=== PATIENT | male | born 1975 | race Caucasian/White ===

== ENCOUNTER 2019-01-05 21:57 | Emergency (ER) | payer OTHER ==
[2019-01-05 22:28] VITALS: BP 123/81; PULSE 80; TEMP 97.8; BMI 29.2
--- NOTE | 2019-01-06 02:13 | PDOC ---
Attending Attestation - Resident Resident Name: Calvin Cabrera - ED Attending Attestation I have performed the following: I have examined & evaluated the patient, The case was reviewed & discussed with the resident, I agree w/resident's findings & plan - HPI HPI: 01/06/19 03:55 43-year-old male status post seizure striking his forehead on the wall. Here for evaluation from his custodial. - Physicial Exam PE: 01/06/19 03:56 agree with resident exam - Medical Decision Making 01/06/19 03:56 43 yo male s/o head strike and left eyebrow laceration sustained during seizure CT scan brain negative for acute traumatic injury d/c with pcp follow up
--- NOTE | 2019-01-06 02:38 | PDOC ---
History of Present Illness - General Chief Complaint: Seizure Stated Complaint: SEIZURE 30 MINUTES AGO Time Seen by Provider: 01/06/19 01:45 - History of Present Illness Initial Comments: 01/06/19 02:34 43m from [facility], h/o mild mental retardation, autism, schizophrenia and seizure disorder brought to the ED after seizing and hitting his face against a wall while falling. Numerous seizure over the months with frequent readjustment of medication ( 1750mg bid of valproate and 1g keppra daily) Seizure was tonic clonic, lasted 5min and patient was post ictal for 5min. No incontinence. Patient has small laceration over left eyebrow. Accompanied by facility raiser helper. Past History - Past Medical History Allergies/Adverse Reactions: Allergies Allergy/AdvReac Type Severity Reaction Status Date / Time No Known Allergies Allergy Verified 01/05/19 22:23 Cancer: No Cardiac Disorders: No CVA: No COPD: No Seizures: Yes - Surgical History GI Surgery: Yes (colostomy) - Suicide/Smoking/Psychosocial Hx Smoking History: Never smoked Review of Systems - Review of Systems Able to Perform ROS?: No (MR) *Physical Exam - Vital Signs Last Vital Signs Temp Pulse Resp BP Pulse Ox 97.8 F 80 20 123/81 98 01/05/19 22:23 01/05/19 22:23 01/05/19 22:23 01/05/19 22:23 01/05/19 22:23 - Physical Exam General Appearance: Yes: Nourished, Appropriately Dressed. No: Apparent Distress HEENT: positive: EOMI, GERSON, Normal ENT Inspection, Other (1cm linera laceration over left eyebrow, non bleeding. ) Respiratory/Chest: positive: Lungs Clear, Normal Breath Sounds. negative: Chest Tender, Respiratory Distress Cardiovascular: positive: Regular Rhythm, Regular Rate, S1, S2 Gastrointestinal/Abdominal: positive: Normal Bowel Sounds, Flat, Soft, Other ( PEG tube in place). negative: Tender Extremity: positive: Normal Capillary Refill, Normal Inspection, Normal Range of Motion Neurologic: positive: Alert, Normal Mood/Affect (at baseline) ED Treatment Course - RADIOLOGY Radiology Studies Ordered: Category Date Time Status HEAD CT WITHOUT CONTRAST [CT] Stat CT Scan 01/06/19 02:22 Ordered Medical Decision Making - Medical Decision Making 01/06/19 05:55 43m s/p seizure and small eyebrow lac. Ct head negative. Depakote level 145. Upper limit of normal therapeutic 100. LAC repaired with dermabond. Ok to discharge patient with recommendation that depakote be held couple days to therapeutic level *DC/Admit/Observation/Transfer Diagnosis at time of Disposition: Seizure, Laceration of eyebrow - Discharge Dispostion Disposition: HOME Condition at time of disposition: Improved Decision to Admit order: No - Referrals Schedule a call back: call back for depakote level Referrals: Sara Dunn [Primary Care Provider] - - Patient Instructions Printed Discharge Instructions: DI for Seizure Disorder -- Adult, DI for Closed Head Injury Additional Instructions: Valproate level 143. Recommend holding a couple of doses to get back to therapeutic level. Come back to the emergency department for any new, worsening or concerning symptom. - Post Discharge Activity
== END 2019-01-06 04:55 | disposition home or self-care (01) ==
LOC: JER 21:57
DX: G40.802 Other epilepsy, not intractable, without status epilepticus (principal); F70 Mild intellectual disabilities; F84.0 Autistic disorder; F20.9 Schizophrenia, unspecified; Z93.1 Gastrostomy status
CPT/HCPCS: 36415; 70450-TC; 80164; 99282-25